=== PATIENT | female | born 1965 | race Caucasian/White ===

== ENCOUNTER → 2017-05-14 | Outpatient (CLI) | payer OTHER ==
--- NOTE | 2017-05-17 07:40 | MM ---
Reason for exam: screening (asymptomatic). Last mammogram was performed 1 year and 2 months ago. History: Patient is postmenopausal and has history of breast cancer at age 44. US LT VAD Breast Biopsy of the left breast, July 14, 2012. Malignant right breast needle localzation of the right breast, November 27, 2009. Malignant right mammotome panel of the right breast, November 13, 2009. Lumpectomy of the right breast. Took hormonal contraceptives for 12 years beginning at age 29. Took tamoxifen for 1 year beginning at age 44. Physical Findings: A clinical breast exam by your physician is recommended on an annual basis and results should be correlated with mammographic findings. MG Screening Mammo w CAD Bilateral CC and MLO view(s) were taken. Prior study comparison: March 20, 2016, bilateral MG screening mammo w CAD. November 23, 2014, bilateral MG diagnostic mammo w CAD JACKY. There are scattered fibroglandular densities. Finding: Architectural distortion in the right breast consistent with previous surgery. Previous lumpectomy in the right breast. No significant changes in finding since March 20, 2016 and November 23, 2014. ASSESSMENT: Benign, BI-RAD 2 RECOMMENDATION: Routine screening mammogram of both breasts.
== END | disposition home or self-care (01) ==
LOC: RADMAMWWP 07:24
PROVIDERS: ATTEND Family Medicine
DX: Z12.31 Encounter for screening mammogram for malignant neoplasm of breast (principal)

== ENCOUNTER 2018-03-21 12:16 | Emergency (ER) | payer BC, OTHER ==
[2018-03-21] MEDS ORDERED: FAMOTIDINE 20 MG/2 ML VIAL ONE (12:34)
[2018-03-21] MEDS ORDERED: methylPREDNISolone SOD SUCCI 125 MG/2 ML VIAL ONE (12:34)
[2018-03-21] MEDS ORDERED: diphenhydrAMINE 50 MG/ML 1 ML VIAL ONE (12:34)
[2018-03-21] MEDS ORDERED: diphenhydrAMINE 50 MG/ML 1 ML VIAL IVP STA (12:44)
[2018-03-21] MEDS ORDERED: methylPREDNISolone SOD SUCCI 125 MG/2 ML VIAL IV STA (12:44)
[2018-03-21] MEDS ORDERED: FAMOTIDINE 20 MG/2 ML VIAL IV STA (12:45)
--- NOTE | 2018-03-21 12:47 | ED ---
General Adult HPI - General Chief complaint: Allergic Reaction Stated complaint: allergic reaction Time Seen by Provider: 03/21/18 12:25 Source: patient, RN notes reviewed Mode of arrival: ambulatory Limitations: no limitations - History of Present Illness Initial comments: This is a 52-year-old female who presents emergency Department stating that she has some tongue swelling. Patient thinks she must the touch something while she was gardening this morning. Patient also indicates that she has been on lisinopril for 10 years and never had this reaction. Patient denies any shortness of breath or difficulty breathing. Patient denies any throat swelling. Patient denies any rashes or areas of swelling aside from the tongue. Patient states working in the garden the past she's never had this problem. - Related Data Home Medications Medication Instructions Recorded Confirmed Lisinopril [Zestril] 2.5 mg PO QAM 12/13/14 07/09/15 Previous Rx's Medication Instructions Recorded HYDROcodone/APAP 5-325MG [[place] 5] 1 each PO Q6HR PRN #30 tab 07/12/15 predniSONE 40 mg PO DAILY #8 tab 03/21/18 Allergies Allergy/AdvReac Type Severity Reaction Status Date / Time Fish Containing Products Allergy Anaphylaxis Verified 03/21/18 12:24 [Fish] EPINEPHRINE WITH LIDOCAINE Allergy Anaphylaxis Uncoded 03/21/18 12:24 INJECTIO Review of Systems ROS Statement: Those systems with pertinent positive or pertinent negative responses have been documented in the HPI. ROS Other: All systems not noted in ROS Statement are negative. Past Medical History Past Medical History: Cancer, Hypertension Additional Past Medical History / Comment(s): breast CA History of Any Multi-Drug Resistant Organisms: None Reported Past Surgical History: Breast Surgery, Section, Orthopedic Surgery Additional Past Surgical History / Comment(s): JACKY CARP TUNNEL REP. RIGHT PART MASECTOMY Past Anesthesia/Blood Transfusion Reactions: No Reported Reaction Past Psychological History: No Psychological Hx Reported Smoking Status: Never smoker Past Alcohol Use History: None Reported Past Drug Use History: None Reported - Past Family History Mother Family Medical History: Diabetes Mellitus General Exam - General Exam Comments Initial Comments: GENERAL: Patient is well-developed and well-nourished. Patient is nontoxic and well- hydrated and is in mild distress. ENT: Neck is soft and supple. No significant lymphadenopathy is noted. Oropharynx is clear. Tongue is significantly swollen but not impeding swallowing or interfering with the airway Moist mucous membranes. Neck has full range of motion without eliciting any pain. EYES: The sclera were anicteric and conjunctiva were pink and moist. Extraocular movements were intact and pupils were equal round and reactive to light. Eyelids were unremarkable. PULMONARY: Unlabored respirations. Good breath sounds bilaterally. No audible rales rhonchi or wheezing was noted. CARDIOVASCULAR: There is a regular rate and rhythm without any murmurs gallops or rubs. ABDOMEN: Soft and nontender with normal bowel sounds. No palpable organomegaly was noted. There is no palpable pulsatile mass. SKIN: Skin is clear with no lesions or rashes and otherwise unremarkable. NEUROLOGIC: Patient is alert and oriented x3. Cranial nerves II through XII are grossly intact. Motor and sensory are also intact. Normal speech, volume and content. Symmetrical smile. MUSCULOSKELETAL: Normal extremities with adequate strength and full range of motion. LYMPHATICS: No significant lymphadenopathy is noted PSYCHIATRIC: Normal psychiatric evaluation Limitations: no limitations Course Vital Signs 03/21/18 12:22 Temperature 98.2 F Pulse Rate 88 Respiratory 18 Rate Blood Pressure 176/88 O2 Sat by Pulse 100 Oximetry Medical Decision Making - Medical Decision Making Patient had slight improvement of her symptoms. Disposition Clinical Impression: Angioedema Disposition: HOME SELF-CARE Instructions: Angioedema (ED) Additional Instructions: Patient should stop taking lisinopril Prescriptions: predniSONE 40 mg PO DAILY #8 tab Is patient prescribed a controlled substance at d/c from ED?: No Referrals: Ignacio Lia DO [Primary Care Provider] - 1-2 days Time of Disposition: 14:14
[2018-03-21 14:28] VITALS: BP 144/70; PULSE 78; RESP 16; TEMP 97.9
== END 2018-03-21 14:25 | disposition home or self-care (01) ==
LOC: EC 12:16
DX: T78.3XXA Angioneurotic edema, initial encounter (principal); I10 Essential (primary) hypertension; Z85.3 Personal history of malignant neoplasm of breast; Z79.899 Other long term (current) drug therapy; Z88.8 Allergy status to other drugs, medicaments and biological substances; Z91.013 Allergy to seafood
CPT/HCPCS: 99283; 96374; 96375 ×2; J1200; J2930

== ENCOUNTER → 2019-10-30 | Outpatient (CLI) | payer BC ==
--- NOTE | 2019-10-31 09:28 | MM ---
Reason for exam: screening (asymptomatic). Last mammogram was performed 2 years and 6 months ago. History: Patient is postmenopausal and has history of breast cancer at age 44. US LT VAD Breast Biopsy of the left breast, July 14, 2012. Malignant right breast needle localzation of the right breast, November 27, 2009. Malignant right mammotome panel of the right breast, November 13, 2009. Lumpectomy of the right breast. Took hormonal contraceptives for 12 years beginning at age 29. Took tamoxifen for 1 year beginning at age 44. Physical Findings: A clinical breast exam by your physician is recommended on an annual basis and results should be correlated with mammographic findings. MG Screening Mammo w CAD Bilateral CC and MLO view(s) were taken. Prior study comparison: May 14, 2017, bilateral MG screening mammo w CAD. March 20, 2016, bilateral MG screening mammo w CAD. There are scattered fibroglandular densities. There are benign appearing oval circumscribed bilateral stable subcentimeter masses that are low density. Benign appearing bilateral calcifications. No suspicious abnormality. Post surgical change on the right. ASSESSMENT: Benign, BI-RAD 2 RECOMMENDATION: Routine screening mammogram of both breasts in 1 year.
== END | disposition home or self-care (01) ==
LOC: RADMAMWWP 13:09
PROVIDERS: ATTEND Family Medicine
DX: Z12.31 Encounter for screening mammogram for malignant neoplasm of breast (principal)
CPT/HCPCS: 77067

== ENCOUNTER → 2021-12-20 | Outpatient (CLI) | payer BC, OTHER | END | disposition home or self-care (01) | LOC: LABWHC1 08:23 | PROVIDERS: ATTEND Emergency Medicine | DX: U07.1 COVID-19 (principal) | CPT/HCPCS: 87635 ==

== ENCOUNTER 2022-01-18 14:37 | Emergency (ER) | payer BC ==
[2022-01-18 14:43] VITALS: RESP 18
[2022-01-18] MEDS ORDERED: AMPICILLIN-SULBACTAM 3 GM in SODIUM CHLORIDE 0.9% 100 ML IVPB STA (15:06)
[2022-01-18] MEDS ORDERED: PROPARACAINE 0.5% OPHTH DROPS 15 ML BTL BOTH EYES STA (15:11)
--- NOTE | 2022-01-18 15:11 | ED ---
General Adult HPI - General Chief complaint: Eye Problems Stated complaint: Eye Infection Time Seen by Provider: 01/18/22 14:53 Source: patient Mode of arrival: ambulatory Limitations: no limitations - History of Present Illness Initial comments: Dictation was produced using [employer] dictation software. please excuse any grammatical, word or spelling errors. Chief Complaint: 56-year-old female presents to the emergency department for facial rash History of Present Illness: Patient is a 56-year-old female she has past medical history of hypertension. She was sent here from the nearby urgent care for concerns of orbital cellulitis. His in her kitchen. 4 days ago she noted a rash around her left naris. Patient didn't think much of it and waited for symptoms to improve. This morning she woke up and noticed that her eye became red and inflamed. Patient denies any eye pain however she does complain of some eye watering. She states that she does have some discomfort around the lower lateral eyelid. She went to the urgent care today and was evaluated and told to come to the ER for concerns of orbital cellulitis. Patient denies any pain whatsoever. Denies any vision loss. She has no eye pain. She has no pain with extraocular movements. Denies any constitutional symptoms. No nausea or vomiting. She has no headache The ROS documented in this emergency department record has been reviewed and confirmed by me. Those systems with pertinent positive or negative responses have been documented in the HPI. All other systems are other negative and/or noncontributory. PHYSICAL EXAM: General Impression: Alert and oriented x3, not in acute distress HEENT: Normocephalic atraumatic, extra-ocular movements intact, pupils equal and reactive to light bilaterally, mucous membranes moist. Face: There does appear to be nonbullous crusty rash around the left naris that spreads to the left periorbital area. She has injected conjunctiva. Pupils are equal round reactive. Tympanic membranes are normal bilaterally, no pain with palpation of the orbit Cardiovascular: Heart regular rate and rhythm Chest: Able to complete full sentences, no retractions, no tachypnea Abdomen: abdomen soft, non-tender, non-distended, no organomegaly Musculoskeletal: Pulses present and equal in all extremities, no peripheral edema Motor: no focal deficits noted Neurological: CN II-XII grossly intact, no focal motor or sensory deficits noted Skin: Intact with no visualized rashes Psych: Normal affect and mood ED course: 56-year-old female presents to the emergency department for clinical presentation concerning for impetigo with secondary bacterial conjunctivitis. Patient is immunocompetent. she does not have clinical features of orbital cellulitis. Vital signs upon arrival shows blood pressure to 201/104, rest of vital signs within acceptable limits. Repeat blood pressure at the bedside was normal. Patient does have a history of hypertension. She has no pain complaints whatsoever. Denies any vision loss in the left eye. Patient reevaluated at 4:00 PM funding so medical condition. Patient given prescription for oral antibiotics and antibiotic eyedrops. Patient advised to follow-up with primary care doctor. Return precautions discussed. Patient given a dose of Unasyn prior to discharge. CBC is unremarkable. - Related Data Home Medications Medication Instructions Recorded Confirmed lisinopriL [Zestril] 2.5 mg PO QAM 12/13/14 07/09/15 Previous Rx's Medication Instructions Recorded HYDROcodone/APAP 5-325MG [[place] 5] 1 each PO Q6HR PRN #30 tab 07/12/15 predniSONE [Deltasone] 40 mg PO DAILY #8 tab 03/21/18 Clindamycin [Cleocin] 450 mg PO Q8H 10 Days #90 cap 01/18/22 Polymyxin B-Trimeth Sulf Ophth 2 drops LEFT EYE Q6H 7 Days #10 ml 01/18/22 [Polytrim Opthalmic] Allergies Allergy/AdvReac Type Severity Reaction Status Date / Time Fish Containing Products Allergy Anaphylaxis Verified 03/21/18 12:24 [Fish] lisinopril Allergy Swelling Verified 01/18/22 14:40 EPINEPHRINE WITH LIDOCAINE Allergy Anaphylaxis Uncoded 03/21/18 12:24 INJECTIO Review of Systems ROS Statement: Those systems with pertinent positive or pertinent negative responses have been documented in the HPI. ROS Other: All systems not noted in ROS Statement are negative. Past Medical History Past Medical History: Cancer, Hypertension Additional Past Medical History / Comment(s): breast CA History of Any Multi-Drug Resistant Organisms: None Reported Past Surgical History: Breast Surgery, Section, Orthopedic Surgery Additional Past Surgical History / Comment(s): JACKY CARP TUNNEL REP. RIGHT PART MASECTOMY Past Anesthesia/Blood Transfusion Reactions: No Reported Reaction Past Psychological History: No Psychological Hx Reported Smoking Status: Never smoker Past Alcohol Use History: None Reported Past Drug Use History: None Reported - Past Family History Mother Family Medical History: Diabetes Mellitus General Exam Limitations: no limitations Course Vital Signs 01/18/22 01/18/22 14:40 15:36 Temperature 97.8 F Pulse Rate 94 89 Respiratory 18 18 Rate Blood Pressure 201/104 167/96 O2 Sat by Pulse 98 97 Oximetry Medical Decision Making - Lab Data Result diagrams: 01/18/22 15:32 Lab Results 01/18/22 Range/Units 15:32 WBC 5.3 (3.8-10.6) k/uL RBC 4.16 (3.80-5.40) m/uL Hgb 13.7 (11.4-16.0) gm/dL Hct 40.3 (34.0-46.0) % MCV 97.0 (80.0-100.0) fL MCH 33.1 (25.0-35.0) pg MCHC 34.1 (31.0-37.0) g/dL RDW 15.8 H (11.5-15.5) % Plt Count 205 (150-450) k/uL MPV 7.1 Disposition Clinical Impression: Impetigo, Bacterial conjunctivitis Disposition: HOME SELF-CARE Condition: Fair Instructions (If sedation given, give patient instructions): Impetigo (ED), Conjunctivitis (ED) Prescriptions: Clindamycin [Cleocin] 450 mg PO Q8H 10 Days #90 cap Polymyxin B-Trimeth Sulf Ophth [Polytrim Opthalmic] 2 drops LEFT EYE Q6H 7 Days #10 ml Is patient prescribed a controlled substance at d/c from ED?: No Referrals: Ignacio Lai DO [Primary Care Provider] - 1-2 days
[2022-01-18 15:55] LABS: HCT 40.3 % (34.0-46.0); HGB 13.7 gm/dL (11.4-16.0); MCH 33.1 pg (25.0-35.0); MCHC 34.1 g/dL (31.0-37.0); Mean Platelet Volume 7.1; Platelet Count 205 k/uL (150-450); RBC 4.16 m/uL (3.80-5.40); RDW 15.8 % (11.5-15.5); WBC 5.3 k/uL (3.8-10.6)
[2022-01-18 17:02] LABS: African American GFR (CKD) >90 (>60 ml/min/1.73 sqM); Anion Gap 9 mmol/L; Blood Urea Nitrogen 14 mg/dL (7-17); Calcium 8.6 mg/dL (8.4-10.2); Carbon Dioxide 26 mmol/L (22-30); Chloride 106 mmol/L (98-107); Glucose 92 mg/dL (74-99); Non-African American GFR(CKD) >90 (>60 ml/min/1.73 sqM); Potassium 3.6 mmol/L (3.5-5.1); Sodium 141 mmol/L (137-145)
[2022-01-18 17:09] LABS: Eosinophils # (M) 0.16 k/uL (0-0.7); Lymphocytes # (M) 0.74 k/uL (1.0-4.8); Monocytes # (M) 0.42 k/uL (0-1.0); Neutrophils # (M) 3.98 k/uL (1.3-7.7); Neutrophils % (M) 75 %; Nucleated Red Blood Cells 0 /100 WBC (0-0); Total Cells Counted 100
[2022-01-18 17:11] VITALS: BP 155/97; PULSE 88; TEMP 98.6
== END 2022-01-18 17:14 | disposition home or self-care (01) ==
LOC: EC 14:37
DX: L01.00 Impetigo, unspecified (principal); H10.9 Unspecified conjunctivitis; I10 Essential (primary) hypertension; Z88.8 Allergy status to other drugs, medicaments and biological substances; Z91.013 Allergy to seafood
CPT/HCPCS: 36415; 80048; 85025; 87070; 87205; 87075; 99283; 96365; J0295

== ENCOUNTER → 2022-01-30 | Outpatient (CLI) | payer BC ==
--- NOTE | 2022-02-02 11:39 | MM ---
Reason for exam: screening (asymptomatic). Last mammogram was performed 2 years and 3 months ago. History: Patient is postmenopausal and has history of breast cancer at age 44. US LT VAD Breast Biopsy of the left breast, July 14, 2012. Malignant right breast needle localzation of the right breast, November 27, 2009. Malignant right mammotome panel of the right breast, November 13, 2009. Lumpectomy of the right breast. Took hormonal contraceptives for 12 years beginning at age 29. Took tamoxifen for 1 year beginning at age 44. Physical Findings: A clinical breast exam by your physician is recommended on an annual basis and results should be correlated with mammographic findings. MG Screening Mammo w CAD Bilateral CC and MLO view(s) were taken. Prior study comparison: October 30, 2019, bilateral MG screening mammo w CAD. May 14, 2017, bilateral MG screening mammo w CAD. The breast tissue is heterogeneously dense. This may lower the sensitivity of mammography. Stable benign calcifications. Stable post operativ changes right breast. No significant changes when compared with prior studies. ASSESSMENT: Benign, BI-RAD 2 RECOMMENDATION: Routine screening mammogram of both breasts in 1 year.
== END | disposition home or self-care (01) ==
LOC: RADMAMWWP 11:12
PROVIDERS: ATTEND Family Medicine
DX: Z12.31 Encounter for screening mammogram for malignant neoplasm of breast (principal)
CPT/HCPCS: 77067

== ENCOUNTER 2023-08-15 16:32 | Emergency (ER) | payer BC ==
[2023-08-15] MEDS ORDERED: LIDOCAINE 1% INJ 10MG/ML (20 ML MDV) SQ ONE (16:51)
[2023-08-15] MEDS ORDERED: TOPICAL SKIN ADHESIVE 1 EACH AMP TOPICAL ONE (16:51)
--- NOTE | 2023-08-15 16:59 | ED ---
Wound/Laceration HPI - General Chief Complaint: Wound/Laceration Stated Complaint: right middle finger laceration Time Seen by Provider: 08/15/23 16:42 Source: patient Mode of arrival: ambulatory Limitations: no limitations - History of Present Illness Initial Comments: 58-year-old female presenting with chief complaint of right third digit lacerat ion. Patient injured the finger while using a blade on her mixer. No numbness, tingling, weakness. Last tetanus unknown laceration is located just adjacent to the fingernail, does not involve the nail.. - Related Data Home Medications Medication Instructions Recorded Confirmed lisinopriL [Zestril] 2.5 mg PO QAM 12/13/14 07/09/15 Previous Rx's Medication Instructions Recorded HYDROcodone/APAP 5-325MG [[place] 5] 1 each PO Q6HR PRN #30 tab 07/12/15 predniSONE [Deltasone] 40 mg PO DAILY #8 tab 03/21/18 Clindamycin [Cleocin] 450 mg PO Q8H 10 Days #90 cap 01/18/22 Polymyxin B-Trimeth Sulf Ophth 2 drops LEFT EYE Q6H 7 Days #10 ml 01/18/22 [Polytrim Opthalmic] Allergies Allergy/AdvReac Type Severity Reaction Status Date / Time Fish Containing Products Allergy Anaphylaxis Verified 08/15/23 16:37 [Fish] lisinopril Allergy Swelling Verified 08/15/23 16:37 EPINEPHRINE WITH LIDOCAINE Allergy Anaphylaxis Uncoded 03/21/18 12:24 INJECTIO Review of Systems ROS Statement: Those systems with pertinent positive or pertinent negative responses have been documented in the HPI. ROS Other: All systems not noted in ROS Statement are negative. Past Medical History Past Medical History: Cancer, Hypertension Additional Past Medical History / Comment(s): breast CA History of Any Multi-Drug Resistant Organisms: None Reported Past Surgical History: Breast Surgery, Section, Orthopedic Surgery Additional Past Surgical History / Comment(s): JACKY CARP TUNNEL REP. RIGHT PART MASECTOMY Past Anesthesia/Blood Transfusion Reactions: No Reported Reaction Past Psychological History: No Psychological Hx Reported Smoking Status: Never smoker Past Alcohol Use History: None Reported Past Drug Use History: None Reported - Past Family History Mother Family Medical History: Diabetes Mellitus General Exam Limitations: no limitations General appearance: alert, in no apparent distress Head exam: Present: atraumatic, normocephalic, normal inspection Eye exam: Present: normal appearance, EOMI Neck exam: Present: normal inspection, full ROM Neurological exam: Present: alert, oriented X3 Psychiatric exam: Present: normal affect, normal mood Expanded Type of lesion: Present: laceration (2cm lac, R 3rd digit) Course Vital Signs 08/15/23 16:34 Temperature 98.4 F Pulse Rate 93 Respiratory 16 Rate Blood Pressure 175/94 O2 Sat by Pulse 98 Oximetry Procedures - Laceration Laceration #1 Consent Obtained: verbal consent Indication: laceration Site: hand Size (cm): 2 Description: linear Depth: simple, single layer Type of Sutures: other (exofin) Patient Tolerated Procedure: well Medical Decision Making - Medical Decision Making Was pt. sent in by a medical professional or institution ([facility], EVS TECH, urgent care, hospital, or care home...) When possible be specific @ -No Did you speak to anyone other than the patient for history (EMS, parent, family, police, friend...)? What history was obtained from this source @ -No Did you review nursing and triage notes (agree or disagree)? Why? @ -I reviewed and agree with nursing and triage notes Were old charts reviewed (outside hosp., previous admission, EMS record, old EKG, old radiological studies, urgent care reports/EKG's, care home records)? Report findings @ -No old charts were reviewed Differential Diagnosis (chest pain, altered mental status, abdominal pain women, abdominal pain men, vaginal bleeding, weakness, fever, dyspnea, syncope, headache, dizziness, GI bleed, back pain, seizure, CVA, palpatations, mental health, musculoskeletal)? @ -not applicable EKG interpreted by me (3pts min.). @ -As above X-rays interpreted by me (1pt min.). @ -None done CT interpreted by me (1pt min.). @ -None done U/S interpreted by me (1pt. min.). @ -None done What testing was considered but not performed or refused? (CT, X-rays, U/S, labs)? Why? @ -None What meds were considered but not given or refused? Why? @ -None Did you discuss the management of the patient with other professionals (professionals i.e. [facility] rAmando, EVS TECH, lab, RT, psych nurse, renal social worker, gis analyst, teacher, physics technical officer, spring encaser)? Give summary @ -No Was smoking cessation discussed for >3mins.? @ -No Was critical care preformed (if so, how long)? @ -No Were there social determinants of health that impacted care today? How? (Homelessness, low income, unemployed, alcoholism, drug addiction, t ransportation, low edu. Level, literacy, decrease access to med. care, [facility], rehab)? @ -No Was there de-escalation of care discussed even if they declined (Discuss DNR or withdrawal of care, Hospice)? DNR status @ -No What co-morbidities impacted this encounter? (DM, HTN, Smoking, COPD, CAD, Cancer, CVA, ARF, Chemo, Hep., AIDS, mental health diagnosis, sleep apnea, morbid obesity)? @ -None Was patient admitted / discharged? Hospital course, mention meds given and route, prescriptions, significant lab abnormalities, going to OR and other pertinent info. @ -58-year-old female presenting with chief complaint of laceration. Patient does not remember when her last tetanus was, it is updated today. Laceration is repaired using skin adhesive. Patient is educated on wound care and signs of infection. Follow-up with PCP. Report back to ER with any new or worsening symptoms. Discussed return parameters and answered all questions. Patient conveyed verbal understanding and agreed to the plan. I discussed this case in detail with my attending Dr. Guthrie Undiagnosed new problem with uncertain prognosis? @ -No Drug Therapy requiring intensive monitoring for toxicity (Heparin, Nitro, Insulin, Cardizem)? @ -No Were any procedures done? @ -Laceration repair Diagnosis/symptom? @ -Laceration Acute, or Chronic, or Acute on Chronic? @ -Acute Uncomplicated (without systemic symptoms) or Complicated (systemic symptoms)? @ -uncomplicated Side effects of treatment? @ -No Exacerbation, Progression, or Severe Exacerbation? @ -No Poses a threat to life or bodily function? How? (Chest pain, [place], [place], pneumonia, PE, COPD, DKA, ARF, appy, cholecystitis, CVA, Diverticulitis, Homicidal, Suicidal, threat to staff... and all critical care pts) @ -No Disposition Clinical Impression: Laceration Disposition: HOME SELF-CARE Condition: Good Instructions (If sedation given, give patient instructions): Laceration (ED), Skin Adhesive Care (ED) Additional Instructions: Follow-up with PCP. Report back to ER with any new or worsening symptoms. Monitor for signs of infection, including but not limited to redness, swelling, pain, discharge, fever, chills. Keep the wound clean and dry and covered. Avoid fully submerging the wound. Clean with soap and water. Do not apply Neosporin or other ointment-based products as this will break down the skin adhesive. Is patient prescribed a controlled substance at d/c from ED?: No Referrals: Ignacio Lai DO [Primary Care Provider] - 1-2 days Time of Disposition: 17:39
[2023-08-15] MEDS ORDERED: DIPH,PERTUS(ACELL)TETVAC-LF 0.5 ML VIAL IM ONE (17:39)
[2023-08-15 18:38] VITALS: BP 158/88; PULSE 90; RESP 18; TEMP 98
== END 2023-08-15 18:20 | disposition home or self-care (01) ==
LOC: EC 16:32
DX: S61.212A Laceration without foreign body of right middle finger without damage to nail, initial encounter (principal); I10 Essential (primary) hypertension; Z23 Encounter for immunization; Z79.899 Other long term (current) drug therapy; Z91.013 Allergy to seafood; Z88.8 Allergy status to other drugs, medicaments and biological substances; W26.8XXA Contact with other sharp object(s), not elsewhere classified, initial encounter
CPT/HCPCS: 90715; 12001; 99282; 90471; J2001

== ENCOUNTER → 2024-02-23 | Outpatient (CLI) | payer BC ==
--- NOTE | 2024-02-24 11:54 | BD ---
EXAMINATION TYPE: Axial Bone Density DATE OF EXAM: 02/23/2024 CLINICAL HISTORY: 58 years old Female. ICD-10 CODE: M81.0 Known osteoporosis Height: 5 ft 2 in Weight: 214 FRAX RISK QUESTIONS: Alcohol (3 or more units per day): no Family History (Parent hip fracture): no Glucocorticoids (More than 3mos): no (Ex: prednisone, prednisolone, methylprednisolone, dexamethasone, and hydrocortisone). History of Fracture in Adulthood: no Secondary Osteoporosis: 1. Type 1 Diabetes: no 2. Hyperthyroidism: no 3. Menopause before 45: no 4. Malnutrition: no 5. Chronic liver disease: no Rheumatoid Arthritis: no Current Tobacco Use: no RISK FACTORS HISTORY OF: Surgery to Spine/Hip(right/left)/Wrist (right/left): no MEDICATIONS: Thyroid Medications: none Osteoporosis Medications: none EXAM MEASUREMENTS: Bone mineral densitometry was performed using the [employer] System. Bone mineral density as measured about the Lumbar spine is: ----- L1-L4(G/cm2): 1.038 T Score Values are as follows: ----- L1: -1.1 ----- L2: -1.5 ----- L3: -0.8 ----- L4: -1.4 ----- L1-L4: -1.2 Z Score Values are as follows: ----- L1: -1.0 ----- L2: -1.3 ----- L3: -0.6 ----- L4: -1.2 ----- L1-L4: -1.0 baseline Bone mineral density about the R hip (g/cm2): 0.782 Bone mineral density about the L hip (g/cm2): 0.671 T Score values are as follows: -----R Neck: -1.8 -----L Neck: -2.6 -----R Total: -1.5 -----L Total: -1.4 Z Score values are as follows: -----R Neck: -1.3 -----L Neck: -2.1 -----R Total: -1.3 -----L Total: -1.2 baseline FRAX%s: The graph provided illustrates a 11.2 % chance for a major osteoporotic fx and a 2.2 % chance for the hips probability for fx in 10 years time. IMPRESSION: Osteoporosis (T Score less than -2.5). There is increased fracture risk and therapy is usually indicated based on age. Re-Screen 1-2 years. NOTE: T-SCORE=SD OF THE YOUNG ADULT MEAN.
--- NOTE | 2024-02-24 18:04 | MM ---
Reason for Exam: Screening (asymptomatic). Last mammogram was performed 2 year(s) and 1 month(s) ago. Patient History: Menarche at age 9. First Full-Term at age 23. Postmenopausal. Breast cancer, age 44. Hormonal Contraceptives for 12 years from age 29 until age 41. Tamoxifen, starting at age 44 for 1 year. Lumpectomy on the Right side. 07/14/2012, Core Biopsy on the Left side. 11/27/2009, Malignant Excisional Biopsy on the right side. 11/13/2009, Malignant Core Biopsy on the right side. Prior Study Comparison: 05/14/2017 Bilateral Screening Mammogram, [facility]. 10/30/2019 Bilateral Screening Mammogram, [facility]. 01/30/2022 Bilateral Screening Mammogram, [facility]. Tissue Density: There are scattered areas of fibroglandular density. Findings: Analyzed By CAD. The pattern is symmetrical. No significant interval change is evident. Benign calcifications are within the bilateral breasts. Surgical clips are within the right breast. No suspicious groups of microcalcifications, spiculated or lobular masses, architectural distortion or other secondary signs of malignancy are mammographically apparent. Overall Assessment: Benign, BI-RAD 2 Management: Screening Mammogram of both breasts in 1 year. A negative mammogram report should not preclude additional follow up of suspicious palpable abnormalities. Patient should continue monthly self breast exam. A clinical breast exam by your physician is recommended on an annual basis and results should be correlated with mammographic findings. Note on Liz scores and lifetime risk: 1. A Liz score greater than 3% is considered moderate risk. If this is the case, consider specialist referral to assess eligibility for a risk reducing agent. 2. If overall lifetime risk for the development of breast cancer is 20% or higher, the patient may qualify for future screening with alternating mammogram and breast MRI. Electronically signed and approved by: Tyler Aguilera D.O. Radiologis
== END | disposition home or self-care (01) ==
LOC: RADMAMWWP 13:56
PROVIDERS: ATTEND Family Medicine
DX: Z12.31 Encounter for screening mammogram for malignant neoplasm of breast (principal); M85.89 Other specified disorders of bone density and structure, multiple sites; M81.0 Age-related osteoporosis without current pathological fracture; Z80.3 Family history of malignant neoplasm of breast; Z78.0 Asymptomatic menopausal state; Z85.3 Personal history of malignant neoplasm of breast
CPT/HCPCS: 77067; 77080